=== PATIENT | female | born 1945 | race Caucasian/White ===

== ENCOUNTER 2017-09-22 18:39 | Observation (INO) | payer OTHER, MEDICARE ==
[~2017-09-22] VITALS: Ht 167.6 cm; Wt 75.1 kg
[2017-09-22 19:56] LABS: BASOPHIL COUNT 0.1 K/uL (0-0.1); EOSINOPHIL (%) 0.6 % (0-5); EOSINOPHIL COUNT 0.1 K/uL (0-0.3); HEMATOCRIT 40.8 % (36.0-46.0); IMMATURE GRANULOCYTE (%) 1.1 % (0.0-0.7); IMMATURE GRANULOCYTE COUNT 0.1 K/uL; LYMPHOCYTE COUNT 1.5 K/uL (1.0-2.8); MCH 31.4 PG (29.0-34.0); MCHC 34.1 G/DL (30.0-36.0); MCV 92.1 FL (83-99); MEAN PLAT.VOLUME 9.7 uM^3 (9.5-12.4); MONOCYTE (%) 7.5 % (3-12); NEUTROPHIL (%) 78.7 % (45-76); PLATELET COUNT 268 K/uL (156-360); RBC DIS.WIDTH-CV 11.9 % (11.8-14.6); RBC DIS.WIDTH-SD 40.2 % (39-53); RED BLOOD COUNT 4.43 M/uL (3.80-5.20); WHITE BLOOD COUNT 12.7 K/uL (4.1-10.2)
[2017-09-22 20:07] LABS: CHLORIDE 95 mEq/L (99-109); POTASSIUM 3.3 mEq/L (3.7-5.4); SODIUM 132 mEq/L (136-147)
[2017-09-22 20:09] LABS: GLUCOSE 322 mg/dL (70-99)
[2017-09-22 20:10] LABS: ANION GAP 14 MEQ/L (2-14)
[2017-09-22 20:13] LABS: GFR ESTIMATE (CALCULATED) 31 mL/min/
[2017-09-22 20:14] LABS: UREA NITROGEN (BUN) 40 mg/dL (9-23)
[2017-09-22 20:21] LABS: TROP-I INTERPRETATION NEGATIVE; TROPONIN-I 0.13 ng/mL (0.0-0.30)
[2017-09-23] VITALS (8 sets, daily range): BP systolic 121–171; BP diastolic 55–74
[2017-09-23 00:11] LABS: ADD MIUA? YES; BILIRUBIN NEGATIVE; BLOOD NEGATIVE; COLOR AMBER ((YELLOW)); GLUCOSE (STRIP) >=500; KETONES 5; LEUKOCYTES MODERATE; NITRITE NEGATIVE; PROTEIN (STRIP) 30; SPECIFIC GRAVITY 1.017 (1.000-1.030)
[2017-09-23 00:26] LABS: BACTERIA 3+ /HPF; EPITHELIAL CELLS RARE /HPF; HYALINE CASTS 0-5 /LPF; MUCUS NONE SEEN /LPF; WHITE BLOOD CELLS TNTC /HPF (0-5)
[2017-09-23] MEDS ORDERED: LANTUS 10100 UNITS/ SC (00:27)
[2017-09-23] MEDS ORDERED: PRAVASTATIN SOD40 MG PO (00:28)
[2017-09-23] MEDS ORDERED: VALSARTAN-HCTZ1 EAC1 PO (00:29)
[2017-09-23] MEDS ORDERED: NOVOLOG 10100 UNITS/ SC (00:29)
[2017-09-23] MEDS ORDERED: LATANOPROST2.5 ML BOTH EYES (00:30)
[2017-09-23] MEDS ORDERED: MELOXICAM7.5 MG PO (00:31)
[2017-09-23] MEDS ORDERED: SYMBICORT60 INHALAT IH (00:31)
[2017-09-23] MEDS ORDERED: HYDROCODON-ACE1 EAC7 PO (00:31)
[2017-09-23] MEDS ORDERED: VENTOLIN HFA18 GM IH (00:32)
[2017-09-23] MEDS ORDERED: MONTELUKAST SOD10 MG PO (00:32)
[2017-09-23 03:04] LABS: TROP-I INTERPRETATION NEGATIVE; TROPONIN-I 0.11 ng/mL (0.0-0.30)
[2017-09-23 08:25] LABS: BASOPHIL COUNT 0.1 K/uL (0-0.1); EOSINOPHIL (%) 1.9 % (0-5); EOSINOPHIL COUNT 0.2 K/uL (0-0.3); HEMATOCRIT 37.1 % (36.0-46.0); IMMATURE GRANULOCYTE COUNT 0.1 K/uL; INSTRUMENT ABS NEUTROPHIL CT 6.5 K/uL; LYMPHOCYTE COUNT 1.8 K/uL (1.0-2.8); MCH 31.4 PG (29.0-34.0); MCHC 33.7 G/DL (30.0-36.0); MCV 93.2 FL (83-99); MEAN PLAT.VOLUME 9.6 uM^3 (9.5-12.4); MONOCYTE (%) 7.9 % (3-12); MONOCYTE COUNT 0.7 K/uL (0-0.8); NEUTROPHIL (%) 69.2 % (45-76); NEUTROPHIL COUNT 6.5 K/uL (1.8-6.4); PLATELET COUNT 233 K/uL (156-360); RBC DIS.WIDTH-SD 41.5 % (39-53); RED BLOOD COUNT 3.98 M/uL (3.80-5.20); WHITE BLOOD COUNT 9.4 K/uL (4.1-10.2)
[2017-09-23 08:43] LABS: ANION GAP 9 MEQ/L (2-14); CHLORIDE 100 MEQ/L (99-109); POTASSIUM 3.6 MEQ/L (3.7-5.4); SAMPLE HEMOLYSIS CHECK 0; SAMPLE ICTERIC CHECK 0; SAMPLE LIPEMIA CHECK 0; SODIUM 136 MEQ/L (136-147)
[2017-09-23 08:49] LABS: GFR ESTIMATE (CALCULATED) 47 mL/min/; GLUCOSE 274 mg/dL (70-99); UREA NITROGEN (BUN) 38 mg/dL (9-23)
[2017-09-23 08:57] LABS: POINT-OF-CARE METER ID UU14162513
[2017-09-23 09:22] LABS: TROP-I INTERPRETATION INDETERMINATE; TROPONIN-I 0.31 ng/mL (0.0-0.30)
[2017-09-23 12:30] LABS: POINT-OF-CARE METER ID UU14162513
[2017-09-23 14:35] LABS: TROP-I INTERPRETATION NEGATIVE; TROPONIN-I 0.25 ng/mL (0.0-0.30)
[2017-09-23 17:36] LABS: POINT-OF-CARE METER ID UU14162513
[2017-09-23 21:06] LABS: POINT-OF-CARE METER ID UU13113700
[2017-09-24] VITALS (8 sets, daily range): BP systolic 125–195; BP diastolic 59–78
[2017-09-24 05:57] LABS: HEMATOCRIT 33.6 % (36.0-46.0); MCH 31.5 PG (29.0-34.0); MCHC 33.6 G/DL (30.0-36.0); MCV 93.6 FL (83-99); MEAN PLAT.VOLUME 9.8 uM^3 (9.5-12.4); PLATELET COUNT 203 K/uL (156-360); RBC DIS.WIDTH-SD 41.5 % (39-53); RED BLOOD COUNT 3.59 M/uL (3.80-5.20); WHITE BLOOD COUNT 8.3 K/uL (4.1-10.2)
[2017-09-24 07:37] LABS: ALKALINE PHOSPHATASE 73 IU/L (3-129); CHLORIDE 103 MEQ/L (99-109); DIRECT BILIRUBIN 0.1 mg/dL (0.0-0.3); POTASSIUM 3.7 MEQ/L (3.7-5.4); SAMPLE HEMOLYSIS CHECK 0; SAMPLE ICTERIC CHECK 0; SAMPLE LIPEMIA CHECK 0; SODIUM 139 MEQ/L (136-147); TOTAL BILIRUBIN 0.5 MG/DL (0.0-1.0); UREA NITROGEN (BUN) 26 mg/dL (9-23)
[2017-09-24 07:41] LABS: GLUCOSE 114 mg/dL (70-99)
[2017-09-24 08:19] LABS: GFR ESTIMATE (CALCULATED) 58 mL/min/; MAGNESIUM 1.9 mg/dl (1.3-2.7)
[2017-09-24 08:23] LABS: ANION GAP 8 MEQ/L (2-14)
[2017-09-24 08:35] LABS: POINT-OF-CARE METER ID UU14162513
[2017-09-24 12:37] LABS: POINT-OF-CARE METER ID UU14162513
[2017-09-24 17:16] LABS: POINT-OF-CARE METER ID UU13113700
[2017-09-24 21:49] LABS: POINT-OF-CARE METER ID UU14162513
[2017-09-25 03:50] VITALS: BP 181/72
[2017-09-25 05:29] LABS: BASOPHIL COUNT 0.1 K/uL (0-0.1); EOSINOPHIL (%) 4.6 % (0-5); EOSINOPHIL COUNT 0.4 K/uL (0-0.3); IMMATURE GRANULOCYTE (%) 1.2 % (0.0-0.7); IMMATURE GRANULOCYTE COUNT 0.1 K/uL; INSTRUMENT ABS NEUTROPHIL CT 5.6 K/uL; LYMPHOCYTE COUNT 1.7 K/uL (1.0-2.8); MCH 30.9 PG (29.0-34.0); MCHC 33.4 G/DL (30.0-36.0); MCV 92.3 FL (83-99); MEAN PLAT.VOLUME 9.6 uM^3 (9.5-12.4); MONOCYTE (%) 6.7 % (3-12); MONOCYTE COUNT 0.6 K/uL (0-0.8); NEUTROPHIL (%) 66.4 % (45-76); NEUTROPHIL COUNT 5.6 K/uL (1.8-6.4); PLATELET COUNT 224 K/uL (156-360); RBC DIS.WIDTH-SD 40.7 % (39-53); RED BLOOD COUNT 3.79 M/uL (3.80-5.20); WHITE BLOOD COUNT 8.5 K/uL (4.1-10.2)
[2017-09-25 06:05] LABS: ANION GAP 7 MEQ/L (2-14); CHLORIDE 102 MEQ/L (99-109); GFR ESTIMATE (CALCULATED) > 59 mL/min/; GLUCOSE 94 mg/dL (70-99); POTASSIUM 4.1 MEQ/L (3.7-5.4); SAMPLE HEMOLYSIS CHECK 1; SAMPLE ICTERIC CHECK 0; SAMPLE LIPEMIA CHECK 0; SODIUM 137 MEQ/L (136-147); UREA NITROGEN (BUN) 22 mg/dL (9-23)
[2017-09-25 12:56] VITALS: BP 169/74
[2017-09-25 16:51] VITALS: BP 137/87
[2017-09-25 18:19] LABS: POINT-OF-CARE METER ID UU13113700
[2017-09-25 19:00] VITALS: BP 147/66
[2017-09-25 21:24] LABS: POINT-OF-CARE METER ID UU13113831
[2017-09-25 23:37] VITALS: BP 135/65
[2017-09-26 03:40] VITALS: BP 120/65
[2017-09-26 08:29] LABS: POINT-OF-CARE METER ID UU13113831
[2017-09-26 08:45] VITALS: BP 139/65; BP 142/68
[2017-09-26 12:38] LABS: POINT-OF-CARE METER ID UU14162513
[2017-09-26] MEDS ORDERED: LEVAQUIN500 MG PO (12:40)
[2017-09-26 12:53] VITALS: BP 140/66
== END 2017-09-26 13:57 | disposition home or self-care (01) ==
LOC: EME → EDBD 18:39 → EDOF 09-23 00:13 → 5WEST 09-23 00:13 → ENRESERV 09-23 00:14 → 5WEST 09-23 01:10 → ENPENDDIS 09-26 → 5WEST 09-26 13:57
PROVIDERS: Family Medicine; Hospitalist; Internal Medicine; Physician Assistant; Physician Assistant Medical
DX: R55 Syncope and collapse (principal); E86.0 Dehydration; N30.01 Acute cystitis with hematuria; N28.9 Disorder of kidney and ureter, unspecified; D72.829 Elevated white blood cell count, unspecified; E11.9 Type 2 diabetes mellitus without complications; Z79.4 Long term (current) use of insulin; R01.1 Cardiac murmur, unspecified; R94.31 Abnormal electrocardiogram [ECG] [EKG]; M51.36 Other intervertebral disc degeneration, lumbar region; Z98.890 Other specified postprocedural states; K21.9 Gastro-esophageal reflux disease without esophagitis; E87.1 Hypo-osmolality and hyponatremia; E87.6 Hypokalemia; I11.9 Hypertensive heart disease without heart failure; J45.909 Unspecified asthma, uncomplicated; E78.5 Hyperlipidemia, unspecified; G89.29 Other chronic pain; K59.00 Constipation, unspecified; E66.9 Obesity, unspecified; Z68.26 Body mass index [BMI] 26.0-26.9, adult; H40.9 Unspecified glaucoma; Z88.0 Allergy status to penicillin; Z88.8 Allergy status to other drugs, medicaments and biological substances; Z83.3 Family history of diabetes mellitus; Z82.49 Family history of ischemic heart disease and other diseases of the circulatory system; Z82.3 Family history of stroke; Z80.1 Family history of malignant neoplasm of trachea, bronchus and lung
CPT/HCPCS: 71010; 80048; 80076; 81003; 82948; 83735; 84484; 85025; 85027; 87077; 87086; 87186; 93005; 93306; 94640 76; 99202; 99281; 99285; G0378; J1815; J1956; J7030; J7040